=== PATIENT | female | born 1990 | race African-American/Black ===

== ENCOUNTER 2020-02-16 13:38 | Emergency (ER) | payer MEDICAID ==
[2020-02-16 15:00] LABS: APPEARANCE,URINE SLIGHTLY-CLOUDY; BILIRUBIN,URINE NEGATIVE (NEGATIVE); COLOR,URINE YELLOW; GLUCOSE, URINE NEGATIVE (NEGATIVE); KETONES,URINE NEGATIVE (NEGATIVE); LEUKOCYTE ESTERASE,URINE NEGATIVE (NEGATIVE); NITRITE,URINE NEGATIVE (NEGATIVE); PROTEIN,URINE NEGATIVE (NEGATIVE); URINE SPECIFIC GRAVITY 1.006; UROBILINOGEN,URINE NEGATIVE mg/dL (<2.0)
--- NOTE | 2020-02-16 16:02 | RADIOLOGY REPORT (SQ) ---
EXAM DESCRIPTION: CT SOFT TISSUE NECK WITH IMAGES COMPLETED DATE/TIME: 02/16/2020 3:44 pm REASON FOR STUDY: lump to left lateral cervical area COMPARISON: None. TECHNIQUE: Post IV contrasted scanning from skull base through lung apices with review of bone, soft tissue and lung windows. Reconstructed coronal and sagittal MPR images reviewed. All images stored on PACS. All CT scanners at this facility use dose modulation, iterative reconstruction, and/or weight based d osing when appropriate to reduce radiation dose to as low as reasonably achievable (ALARA). [facility]: Dose Right [facility]: CareDose [facility]: Dose Right [facility]: Teradose 4D [facility]: Coinplug CONTRAST TYPE AND DOSE: contrast/concentration: Isovue 350.00 mmol/ml; Total Contrast Delivered: 75. 0 ml; Total Saline Delivered: 55.0 ml RENAL FUNCTION: None required. The patient is less than 50 years old. RADIATION DOSE: CT Rad equipment meets quality standard of care and radiation dose reduction techniq ues were employed. CTDIvol: 23.0 mGy. DLP: 649 mGy-cm. . LIMITATIONS: No clinical information is provided. Site of interest not indicated by the technologis t. FINDINGS: SKULL BASE: Intact. MAJOR SALIVARY GLANDS: No solid or cystic masses. No inflammatory changes. LYMPHADENOPATHY: Shotty nodes, generally symmetric bilateral. 1.4 cm short axis inflammatory appeari ng node left lower neck supraclavicular. This has surrounding fat stranding. MUCOSAL MASSES OR ASYMMETRY: Tonsillar and adenoidal prominence. Slightly prominent right lingual to nsils without definable mass or abscess. Mild medial aberrent course of the left common carotid at t he level of the oropharynx. LARYNX/CORDS: No abnormal findings. VASCULAR STRUCTURES: The major vessels are patent. LUNG APICES: Clear. BONES: Intact. THYROID: Complicated cystic nodule in the left thyroid lobe measures 2 cm. PARANASAL SINUSES: Clear. OTHER: No other significant finding. IMPRESSION: 1. Left lateral lower neck inflamed appearing lymph node. 2. No abscess. 3. Other findings as above. TECHNICAL DOCUMENTATION: JOB ID: [id number] Quality ID # [id number]: Final reports with documentation of one or more dose reduction techniques (e.g., Au tomated exposure control, adjustment of the mA and/or kV according to patient size, use of iterative reconstruction technique) 2010 [facility]- All Rights Reserved Reading location - IP/workstation name: [email or web address]
[2020-02-16 16:08] LABS: ABSOLUTE EOSINOPHILS # (AUTO) 0.1 10^3/uL (0.0-0.6); ABSOLUTE LYMPHOCYTES (AUTO) 2.3 10^3/uL (0.5-4.7); ABSOLUTE MONOCYTES (AUTO) 0.2 10^3/uL (0.1-1.4); ABSOLUTE NEUT (AUTO) 2.9 10^3/uL (1.7-8.2); BASOPHILS % (AUTO) 0.4 % (0-2); EOSINOPHILS % (AUTO) 1.3 % (0-6); HEMATOCRIT 39.8 % (36.0-47.0); HEMOGLOBIN 13.4 g/dL (12.0-15.5); LYMPHOCYTES % (AUTO) 41.9 % (13-45); MEAN CORPUSCULAR HEMOGLOBIN 29.9 pg (27.0-33.4); MEAN CORPUSCULAR HGB CONC 33.6 g/dL (32.0-36.0); MEAN CORPUSCULAR VOLUME 89 fl (80-97); MONOCYTES % (AUTO) 4.2 % (3-13); PLATELET COUNT 283 10^3/uL (150-450); RED BLOOD COUNT 4.47 10^6/uL (3.72-5.28); RED CELL DISTRIBUTION WIDTH 14.4 % (11.5-14.0); SEGMENTED NEUTROPHILS % (AUTO) 52.2 % (42-78); TOTAL CELLS COUNTED % (AUTO) 100 %; WHITE BLOOD COUNT 5.6 10^3/uL (4.0-10.5)
[2020-02-16 16:11] LABS: ALBUMIN 4.5 g/dL (3.5-5.0); ALKALINE PHOSPHATASE 48 U/L (38-126); ANION GAP 8 (5-19); ASPARTATE AMINO TRANSFERASE 23 U/L (14-36); BILIRUBIN,TOTAL 0.6 mg/dL (0.2-1.3); BLOOD UREA NITROGEN 8 mg/dL (7-20); CALCIUM 9.8 mg/dL (8.4-10.2); CARBON DIOXIDE 26 mmol/L (22-30); CHLORIDE 104 mmol/L (98-107); GLUCOSE 140 mg/dL (75-110); TOTAL PROTEIN 8.4 g/dL (6.3-8.2)
[2020-02-16] MEDS ORDERED: IBUPROFEN 800 MG TABLET PO ONE (17:09)
[2020-02-16] MEDS ORDERED: KETOROLAC TROMETHAMINE INJ/PF 30 MG/1 ML SDV IV ONE (17:11)
--- NOTE | 2020-02-16 17:12 | ER Document Report ---
HPI - HPI Patient complains to provider of: Lump in neck Time Seen by Provider: 02/16/20 14:18 Onset: Other - 4 days Onset/Duration: Persistent Quality of pain: Achy Pain Level: 1 Context: Patient presents with tender lump to left side of neck. Patient denies any thro at discomfort. Patient denies any difficulty breathing. Patient denies any skin infections to any area surrounding the lump. Patient denies any cat scratches or bites. Associated Symptoms: denies: Fever Exacerbated by: Movement Relieved by: Denies Similar symptoms previously: No Recently seen / treated by doctor: No - ROS ROS below otherwise negative: Yes Systems Reviewed and Negative: Yes All other systems reviewed and negative - CONSTITUTIONAL Constitutional: DENIES: Fever, Chills - EENT EENT: DENIES: Sore Throat, Ear Pain - GASTROINTESTINAL Gastrointestinal: DENIES: Nausea, Patient vomiting - MUSCULOSKELETAL Musculoskeletal: REPORTS: Neck Pain - Tender lump to left side of neck - DERM Skin Color: Normal Skin Problems: None Past Medical History - General Information source: Patient - Social History Smoking Status: Never Smoker Chew tobacco use (# tins/day): No Frequency of alcohol use: None Drug Abuse: None Occupation: None Lives with: Family Family History: Reviewed & Not Pertinent - Medical History Medical History: Negative Past Surgical History: Reports: Hx Cholecystectomy Vertical Provider Document - CONSTITUTIONAL Agree With Documented VS: Yes Exam Limitations: No Limitations General Appearance: WD/WN, No Apparent Distress - HEENT HEENT: Atraumatic, Normocephalic. negative: Pharyngeal Tenderness, Pharyngeal Erythema - NECK Neck: Lymphadenopathy-Left - Single prominent lymph node to base of left lateral neck that measures about 1 cm and is mobile, no erythema overlying area - RESPIRATORY Respiratory: Breath Sounds Normal, No Respiratory Distress - CARDIOVASCULAR Cardiovascular: Regular Rate, Regular Rhythm - BACK Back: Normal Inspection - MUSCULOSKELETAL/EXTREMETIES Musculoskeletal/Extremeties: MAEW, FROM - NEURO Level of Consciousness: Awake, Alert, Appropriate Motor/Sensory: No Motor Deficit - DERM Integumentary: Warm, Dry, No Rash Notes: No abnormal skin lesions or rashes noted to scalp, neck or upper extremity. No additional prominent lymph nodes appreciated. Course - Re-evaluation Re-evalutation: 02/16/20 Patient with a single prominent lymph node to base of left lateral neck. No concern for abscess. Will treat with anti-inflammatory medication. Patient encouraged to follow-up with surgery for any persistent problems. Discussed worsening symptoms that patient should return immediately for. - Vital Signs Vital signs: Temp Pulse Resp BP Pulse Ox 98.4 F 82 18 147/89 H 99 02/16/20 13:47 02/16/20 13:47 02/16/20 13:47 02/16/20 13:47 02/16/20 13:47 - Laboratory Result Diagrams: 02/16/20 15:30 02/16/20 15:30 Laboratory results interpreted by me: 02/16/20 02/16/20 02/16/20 14:30 15:30 15:30 RDW 14.4 H Glucose 140 H Total Protein 8.4 H Urine Blood LARGE H 02/16/20 17:59 Labs- All tests 24 hr 02/16/20 02/16/20 02/16/20 14:30 15:30 15:30 WBC 5.6 RBC 4.47 Hgb 13.4 Hct 39.8 MCV 89 MCH 29.9 MCHC 33.6 RDW 14.4 H Plt Count 283 Lymph % (Auto) 41.9 Pierce % (Auto) 4.2 Eos % (Auto) 1.3 Baso % (Auto) 0.4 Absolute Neuts (auto) 2.9 Absolute Lymphs (auto) 2.3 Absolute Monos (auto) 0.2 Absolute Eos (auto) 0.1 Absolute Basos (auto) 0.0 Seg Neutrophils % 52.2 Sodium 138.2 Potassium 4.0 Chloride 104 Carbon Dioxide 26 Anion Gap 8 BUN 8 Creatinine 0.64 Est GFR ( Amer) > 60 Est GFR (MDRD) Non-Af > 60 Glucose 140 H Calcium 9.8 Total Bilirubin 0.6 Direct Bilirubin 0.0 Neonat Total Bilirubin Not Reportable Neonat Direct Bilirubin Not Reportable Neonat Indirect Bili Not Reportable AST 23 ALT 20 Alkaline Phosphatase 48 Total Protein 8.4 H Albumin 4.5 Serum HCG, Qual Urine Color YELLOW Urine Appearance SLIGHTLY-CLOUDY Urine pH 6.0 Ur Specific [place] 1.006 Urine Protein NEGATIVE Urine Glucose (UA) NEGATIVE Urine Ketones NEGATIVE Urine Blood LARGE H Urine Nitrite NEGATIVE Urine Bilirubin NEGATIVE Urine Urobilinogen NEGATIVE Ur Leukocyte Esterase NEGATIVE Urine WBC (Auto) 1 Urine RBC (Auto) 2 Squamous Epi Cells Auto 9 Urine Mucus (Auto) RARE Urine Ascorbic Acid NEGATIVE 02/16/20 15:30 WBC RBC Hgb Hct MCV MCH MCHC RDW Plt Count Lymph % (Auto) Pierce % (Auto) Eos % (Auto) Baso % (Auto) Absolute Neuts (auto) Absolute Lymphs (auto) Absolute Monos (auto) Absolute Eos (auto) Absolute Basos (auto) Seg Neutrophils % Sodium Potassium Chloride Carbon Dioxide Anion Gap BUN Creatinine Est GFR ( Amer) Est GFR (MDRD) Non-Af Glucose Calcium Total Bilirubin Direct Bilirubin Neonat Total Bilirubin Neonat Direct Bilirubin Neonat Indirect Bili AST ALT Alkaline Phosphatase Total Protein Albumin Serum HCG, Qual NEGATIVE Urine Color Urine Appearance Urine pH Ur Specific [place] Urine Protein Urine Glucose (UA) Urine Ketones Urine Blood Urine Nitrite Urine Bilirubin Urine Urobilinogen Ur Leukocyte Esterase Urine WBC (Auto) Urine RBC (Auto) Squamous Epi Cells Auto Urine Mucus (Auto) Urine Ascorbic Acid Discharge - Discharge Clinical Impression: Cervical lymphadenopathy Condition: Stable Disposition: HOME, SELF-CARE Instructions: Lymphadenopathy ([facility]) Additional Instructions: Return immediately for any new or worsening symptoms Followup with your primary care provider, call tomorrow to make a followup appointment Prescriptions: Naproxen [Naprosyn 250 Nmg Tablet] 1 tab PO BID #14 tablet Referrals: [facility] [Provider Group] - Follow up as needed
[2020-02-16 17:42] VITALS: BP 134/96
== END 2020-02-16 17:43 | disposition home or self-care (01) ==
LOC: ER 13:38
DX: R59.0 Localized enlarged lymph nodes (principal); M54.2 Cervicalgia
CPT/HCPCS: 99284; 96374; 36415; 84703; 85025; 80053; 81001; 70491; J1885

== ENCOUNTER 2020-05-05 08:57 | Emergency (ER) | payer MEDICAID ==
[2020-05-05 09:03] VITALS: BP 135/93
--- NOTE | 2020-05-05 09:28 | ER Document Report ---
ED General - General Chief Complaint: Vaginal Bleeding Stated Complaint: VAGINAL BLEEDING Time Seen by Provider: 05/05/20 09:27 Primary Care Provider: VESTA BALTAZAR MD [ACTIVE STAFF] - Follow up in 3-5 days BALBINA LUGO PA-C [Primary Care Provider] - Follow up as needed - [facility] Notes: 29-year-old female to the emergency department with complaints of abnormal vaginal bleeding began yesterday. She states that she was placed on NuvaRing several weeks ago because she was having abnormally long periods. She states she took the NuvaRing out about a week ago as directed she never got her.. She states that she started to have a little bit of spotting yesterday and she went to see her provider at [facility]. She states that she was diagnosed with BV and had a negative test. She was told to insert her new NuvaRing. She states that last night as she was stretching the bed she felt this kind of pop and this "meaty sac" substance came out of her vagina. She states that she is had a little bit of pelvic cramping with it. She states that she is a G1, P1. She denies any nausea vomiting diarrhea. She denies any fevers or chills. She denies any chest pain or shortness of breath. Denies any urinary tract problems. - Related Data Allergies/Adverse Reactions: No Known Allergies Allergy (Unverified 02/16/20 17:29) Past Medical History - General Information source: Patient - Social History Smoking Status: Never Smoker Frequency of alcohol use: None Drug Abuse: None Family History: Reviewed & Not Pertinent Patient has homicidal ideation: No Past Surgical History: Reports: Hx Cholecystectomy Review of Systems - Review of Systems Constitutional: denies: Chills, Fever EENT: No symptoms reported Cardiovascular: denies: Chest pain, Palpitations, Dizziness, Lightheaded Respiratory: denies: Cough, Short of breath Gastrointestinal: Abdominal pain. denies: Diarrhea, Nausea, Vomiting Genitourinary: denies: Frequency, Flank pain, Hematuria Female Genitourinary: Heavy/abnormal periods, Vaginal bleeding Musculoskeletal: No symptoms reported Skin: No symptoms reported Neurological/Psychological: No symptoms reported Physical Exam - Vital signs Vitals: Temp Pulse Resp BP Pulse Ox 98.1 F 80 20 135/93 H 100 05/05/20 09:02 05/05/20 09:02 05/05/20 09:02 05/05/20 09:02 05/05/20 09:02 Interpretation: Normal - General General appearance: Appears well, Alert In distress: None - HEENT Head: Normocephalic, Atraumatic Eyes: Normal Pupils: PERRL - Respiratory Respiratory status: No respiratory distress Chest status: Nontender Breath sounds: Normal. No: Rales, Rhonchi, Wheezing Chest palpation: Normal - Cardiovascular Rhythm: Regular Heart sounds: Normal auscultation Murmur: No - Abdominal Inspection: Morbidly Obese Distension: No distension Bowel sounds: Normal Tenderness: Nontender. No: Tender, McBurney's point, Gomez's sign, Guarding Organomegaly: No organomegaly - Back Back: Normal, Nontender. 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 Will send home with antibiotics. We will also provide Diflucan to prevent yeast. We will have her follow-up with [facility]. Ultrasound is reassuring and the patient is not . She is encouraged to return if she is worsening at all. - Vital Signs Vital signs: Temp Pulse Resp BP Pulse Ox 98.1 F 80 20 135/93 H 100 05/05/20 09:08 05/05/20 09:02 05/05/20 09:02 05/05/20 09:02 05/05/20 09:02 - Laboratory Result Diagrams: 05/05/20 10:55 05/05/20 10:55 Laboratory results interpreted by me: 05/05/20 05/05/20 05/05/20 10:55 10:55 11:18 RDW 14.4 H BUN 6 L Glucose 126 H Urine Protein 30 H Urine Blood LARGE H Leukocyte Esterase Rfl MODERATE H - Diagnostic Test Radiology reviewed: Image reviewed, Reports reviewed Discharge - Discharge Clinical Impression: Vaginal bleeding UTI (urinary tract infection) Qualifiers: Urinary tract infection type: acute cystitis Hematuria presence: with hematuria Qualified Code(s): N30.01 - Acute cystitis with hematuria Condition: Stable Disposition: HOME, SELF-CARE Instructions: Urinary Tract Infection ([facility]) Additional Instructions: FOLLOW UP WITH OBGYN WITHOUT FAIL. TAKE ANTIBIOTICS. PUSH FLUIDS. RETURN IF WORSE. Prescriptions: Cephalexin Monohydrate [Keflex 500 mg Capsule] 500 mg PO BID 7 Days #14 capsule Referrals: BALBINA LUGO PA-C [Primary Care Provider] - Follow up as needed VESTA BALTAZAR MD [ACTIVE STAFF] - Follow up in 3-5 days
[2020-05-05 11:29] LABS: ABSOLUTE EOSINOPHILS # (AUTO) 0.1 10^3/uL (0.0-0.6); ABSOLUTE LYMPHOCYTES (AUTO) 2.3 10^3/uL (0.5-4.7); ABSOLUTE MONOCYTES (AUTO) 0.3 10^3/uL (0.1-1.4); ABSOLUTE NEUT (AUTO) 3.6 10^3/uL (1.7-8.2); BASOPHILS % (AUTO) 0.4 % (0-2); EOSINOPHILS % (AUTO) 1.2 % (0-6); HEMATOCRIT 37.7 % (36.0-47.0); HEMOGLOBIN 12.8 g/dL (12.0-15.5); LYMPHOCYTES % (AUTO) 36.7 % (13-45); MEAN CORPUSCULAR HEMOGLOBIN 30.5 pg (27.0-33.4); MEAN CORPUSCULAR VOLUME 90 fl (80-97); MONOCYTES % (AUTO) 4.2 % (3-13); PLATELET COUNT 278 10^3/uL (150-450); RED BLOOD COUNT 4.21 10^6/uL (3.72-5.28); RED CELL DISTRIBUTION WIDTH 14.4 % (11.5-14.0); SEGMENTED NEUTROPHILS % (AUTO) 57.5 % (42-78); TOTAL CELLS COUNTED % (AUTO) 100 %; WHITE BLOOD COUNT 6.2 10^3/uL (4.0-10.5)
[2020-05-05 11:36] LABS: APPEARANCE,URINE SLIGHTLY-CLOUDY; BILIRUBIN,URINE NEGATIVE (NEGATIVE); COLOR,URINE YELLOW; GLUCOSE, URINE NEGATIVE (NEGATIVE); KETONES,URINE NEGATIVE (NEGATIVE); PROTEIN,URINE 30 mg/dL (NEGATIVE); URINE SPECIFIC GRAVITY 1.012; UROBILINOGEN,URINE NEGATIVE mg/dL (<2.0)
[2020-05-05 11:51] LABS: ALBUMIN 4.1 g/dL (3.5-5.0); ALKALINE PHOSPHATASE 46 U/L (38-126); ANION GAP 11 (5-19); ASPARTATE AMINO TRANSFERASE 20 U/L (14-36); BILIRUBIN,DIRECT 0.4 mg/dL (0.0-0.4); BILIRUBIN,TOTAL 0.5 mg/dL (0.2-1.3); BLOOD UREA NITROGEN 6 mg/dL (7-20); CARBON DIOXIDE 26 mmol/L (22-30); CHLORIDE 104 mmol/L (98-107); GLUCOSE 126 mg/dL (75-110); POTASSIUM 3.9 mmol/L (3.6-5.0); TOTAL PROTEIN 7.5 g/dL (6.3-8.2)
--- NOTE | 2020-05-05 13:47 | RADIOLOGY REPORT (SQ) ---
EXAM DESCRIPTION: U/S NON OB PEL TV W/DOPPLER IMAGES COMPLETED DATE/TIME: 05/05/2020 1:15 pm REASON FOR STUDY: pelvic pain COMPARISON: None. TECHNIQUE: Dynamic and static grayscale images acquired of the pelvis via transvaginal approach and recorded on PACS. Additional selected color Doppler and spectral images recorded. LIMITATIONS: None. FINDINGS: UTERUS: Retroverted measuring 7 x 5 x 4 cm. No focal lesions. ENDOMETRIAL STRIPE: Endometrial stripe is visualized measuring 1.0 cm. CERVIX: No nabothian cysts. RIGHT OVARY AND DOPPLER: Normal size measuring 3 x 2 x 2 cm. Scattered follicles. No worrisome mass es. Normal arterial vascular flow without evidence for torsion. LEFT OVARY AND DOPPLER: Nonvisualized possibly due to bowel gas. FREE FLUID: None noted. OTHER: No other significant finding. IMPRESSION: Unremarkable appearance of the retroverted uterus and right ovary. Left ovary was not i dentified. TECHNICAL DOCUMENTATION: JOB ID: [id number] 2010 [employer]- All Rights Reserved Rev-12/05 Reading location - IP/workstation name: [email or web address]
== END 2020-05-05 14:29 | disposition home or self-care (01) ==
LOC: ER 08:57
DX: N92.0 Excessive and frequent menstruation with regular cycle (principal); N30.01 Acute cystitis with hematuria
CPT/HCPCS: 36415; 76830; 80053; 81001; 84703; 85025; 87086; 87088; 93976; 99284